=== PATIENT | male | born 1990 | race Caucasian/White ===

== ENCOUNTER 2017-03-17 18:24 | Emergency (ER) | payer MEDICAID ==
--- NOTE | 2017-03-17 19:37 | ED Physician Documentation ---
PD HPI SKIN - Stated complaint Stated Complaint: RASH ALL OVER - Chief complaint Chief Complaint: Wound - History obtained from History obtained from: Patient - History of Present Illness Timing - onset: How many days ago (2-3) Timing - duration: Days (2-3) Timing - details: Abrupt onset, Still present (more erupting daily) Location: [place] Quality / character: Painful, Swelling. No: Draining Associated symptoms: Myalgias. No: Fever, Joint pain Contributing factors: No: Exposed to medication, Exposed to food, Recent illness Similar symptoms before: Diagnosis (had staph infections in the past, not recent. Denies recent IVDU (last was few months ago).) Recently seen: Not recently seen Review of Systems Constitutional: reports: Myalgias. denies: Fever, Chills Neurologic: denies: Focal weakness, Numbness, Altered mental status, Headache PD PAST MEDICAL HISTORY - Past Medical History Past Medical History: No Endocrine/Autoimmune: None Other Past Medical History: hx IV drug abuse. denies using IV drugs at this time. - Past Surgical History Past Surgical History: No - Present Medications Home Medications: Ambulatory Orders Medication Instructions Recorded Confirmed Chlorhexidine Gluconate [Hibiclens] 10 ml TP DAILY #473 ml 03/17/17 Mupirocin 1 applic TP TID #15 oint...g. 03/17/17 Sulfamethox/Trimeth 800/160 1 each PO BID #14 tablet 03/17/17 [Bactrim Ds 800/160] - Allergies Allergies/Adverse Reactions: Allergies Allergy/AdvReac Type Severity Reaction Status Date / Time No Known Drug Allergies Allergy Verified 03/17/17 18:47 - Social History Does the pt smoke?: Yes Smoking Status: Current every day smoker Does the pt drink ETOH?: Yes Does the pt have substance abuse?: Yes - Immunizations Immunizations are current?: Yes PD ED PE NORMAL - Vitals Vital signs reviewed: Yes - General General: Alert and oriented X 3, No acute distress, Well developed/nourished - Neck Neck: Supple, no meningeal sign, No adenopathy - Cardiac Cardiac: RRR, No murmur - Respiratory Respiratory: Clear bilaterally - Derm Derm: Normal color, Other (multiple superficial erosions: back of neck, left forearm, hand, left abd - none seem abscessed. ) Results - Vitals Vitals: Oxygen O2 Source Room air PD MEDICAL DECISION MAKING - ED course Complexity details: considered differential (looks like staph multiple superficial erosions, not abscessed.), d/w patient Departure - Departure Disposition: 01 Home, Self Care Clinical Impression: Staphylococcal infection of skin Condition: Stable Record reviewed to determine appropriate education?: Yes Instructions: ED Staph Infec Abx Tx Only Prescriptions: Chlorhexidine Gluconate [Hibiclens] 10 ml TP DAILY #473 ml Mupirocin 1 applic TP TID #15 oint...g. Sulfamethox/Trimeth 800/160 [Bactrim Ds 800/160] 1 each PO BID #14 tablet Comments: Bactrim twice daily for a week. Use the mupirocin ointment on the worst lesions 2-3 times a day. Shower daily and use the chlorhexidine antiseptic from head to toe to help decrease the load of germs. Recheck if not improving over the next few days. Discharge Date/Time: 03/17/17 20:16
[2017-03-17] MEDS ORDERED: MUPIROCIN 2% OINT 1 GM TOP STA (19:49)
[2017-03-17] MEDS: SULFAMETH/TRIMETH DS 800/160 MG TABLET PO STA (20:04)
[2017-03-17] MEDS ORDERED: MUPIROCIN 2% OINT 1 GM ONE (20:06)
[2017-03-17] MEDS ORDERED: SULFAMETH/TRIMETH DS 800/160 MG TABLET PO ONE (20:06)
[2017-03-17 20:16] VITALS: BP 126/79
== END 2017-03-17 20:16 | disposition home or self-care (01) ==
LOC: ED 18:24
DX: L08.9 Local infection of the skin and subcutaneous tissue, unspecified (principal); B95.8 Unspecified staphylococcus as the cause of diseases classified elsewhere; F17.200 Nicotine dependence, unspecified, uncomplicated
CPT/HCPCS: 99283; A9270

== ENCOUNTER 2018-11-12 10:22 | Emergency (ER) | payer MEDICAID, OTHER ==
[2018-11-12 10:33] VITALS: BP 126/86
[2018-11-12] MEDS ORDERED: ONDANSETRON ODT 4 MG TABLET TL STA (11:11)
[2018-11-12] MEDS ORDERED: DOXYCYCLINE 100 MG TABLET PO STA (11:12)
[2018-11-12] MEDS ORDERED: ACETAMINOPHEN 325 MG TABLET PO STA (11:12)
--- NOTE | 2018-11-12 11:15 | ED Physician Documentation ---
PD HPI SKIN - Stated complaint Stated Complaint: FFJ - Chief complaint Chief Complaint: General - History obtained from History obtained from: Patient - History of Present Illness Timing - onset: Today (Here for medical clearance to be brought to retirement. His complaint is of some nausea that has had for a day or so. He states he has been drinking alcohol and using meth and heroin. He does have multiple small skin sores. He states he has had staph infections in the past. The deputy bring in the mid did not have a specific issue or concern but just that they need to clearance because of the polysubstance abuse.) Timing - details: Gradual onset, Still present, Other (he is arrested and bi consultant wants him checked for admission to retirement.) Location: [facility] Quality / character: Burning, Discolored (several red spots with pointed swelling on forearms c/w skin infections/ drug use.) Associated symptoms: No: Fever, Myalgias, N/V/D Contributing factors: Other (IV drug use) Similar symptoms before: No diagnosis (has small red bumps on forearms) Review of Systems Constitutional: denies: Fever, Chills, Myalgias Nose: denies: Rhinorrhea / runny nose, Congestion Throat: denies: Sore throat Cardiac: denies: Chest pain / pressure, Palpitations Respiratory: denies: Dyspnea, Cough GI: reports: Nausea. denies: Vomiting, Diarrhea Skin: reports: Abrasion (s), Other (forearms mainly with multiple discrete red). denies: Rash, Lesions Endocrine: denies: Weight loss Immunocompromised: denies: Immunocompromised PD PAST MEDICAL HISTORY - Past Medical History Endocrine/Autoimmune: None - Past Surgical History Past Surgical History: No - Present Medications Home Medications: Ambulatory Orders Medication Instructions Recorded Confirmed Chlorhexidine Gluconate [Hibiclens] 15 ml TP DAILY #236 ml 11/12/18 Doxycycline Hyclate 100 mg PO BID #20 capsule 11/12/18 Ondansetron Odt [Zofran] 4 mg TL Q6H PRN #10 tablet 11/12/18 - Allergies Allergies/Adverse Reactions: Allergies Allergy/AdvReac Type Severity Reaction Status Date / Time No Known Drug Allergies Allergy Verified 11/12/18 10:29 - Social History Does the pt smoke?: Yes Smoking Status: Current every day smoker Does the pt drink ETOH?: Yes Does the pt have substance abuse?: Yes Substance Use and Type: Meth, Heroin, Prescription Pills - Immunizations Immunizations are current?: Yes PD ED PE NORMAL - Vitals Vital signs reviewed: Yes - General General: Alert and oriented X 3, No acute distress, Well developed/nourished - HEENT HEENT: Ears normal, Pharynx benign. No: Moist mucous membranes - Neck Neck: Supple, no meningeal sign, No adenopathy - Cardiac Cardiac: RRR, No murmur - Respiratory Respiratory: Clear bilaterally - Abdomen Abdomen: Non tender. No: Normal bowel sounds (diminished) - Derm Derm: Normal color, Warm and dry, Other Results - Vitals Vitals: Vital Signs - 24 hr 11/12/18 10:27 Temperature 36.4 C L Heart Rate 102 H Respiratory 20 Rate Blood Pressure 126/86 H O2 Saturation 99 Oxygen O2 Source Room air Departure - Departure Disposition: 01 Home, Self Care Clinical Impression: Staph skin infection, Polysubstance abuse Condition: Stable Record reviewed to determine appropriate education?: Yes Instructions: ED Staph Infec Abx Tx Only, ED Drug Abuse General Prescriptions: Chlorhexidine Gluconate [Hibiclens] 15 ml TP DAILY #236 ml Doxycycline Hyclate 100 mg PO BID #20 capsule Ondansetron Odt [Zofran] 4 mg TL Q6H PRN #10 tablet PRN Reason: Nausea / Vomiting Comments: Use the chlorhexidine body wash for your showers daily for the next week or so. Doxycycline antibiotic orally twice daily for a week as well. This is for the several skin sores that look like there may be early infections. Use ondansetron if needed for nausea. We will hydrate well through the day today. Discharge Date/Time: 11/12/18 11:28
== END 2018-11-12 11:28 | disposition home or self-care (01) ==
LOC: ED 10:22
DX: Z02.89 Encounter for other administrative examinations (principal); L08.89 Other specified local infections of the skin and subcutaneous tissue; B95.8 Unspecified staphylococcus as the cause of diseases classified elsewhere; F19.10 Other psychoactive substance abuse, uncomplicated; F17.200 Nicotine dependence, unspecified, uncomplicated
CPT/HCPCS: 99283; 99284; A9270; Q0162

== ENCOUNTER 2018-11-17 14:58 | Emergency (ER) | payer MEDICAID ==
--- NOTE | 2018-11-17 16:00 | XRAY Report ---
Reason: poss rectal FB Procedure Date: 11/17/2018 Accession Number: [id number] / [id number] Procedure: XR - Abdomen 1 View X-Ray CPT Code: 53432 FULL RESULT: EXAM: ABDOMEN RADIOGRAPHY EXAM DATE: 11/17/2018 03:46 PM. CLINICAL HISTORY: Poss rectal FB. COMPARISON: None. TECHNIQUE: 1 view. FINDINGS: Bowel Gas Pattern: Within normal limits. No dilated loops. Other: No radiopaque foreign body is demonstrated. There is a large amount of stool throughout the colon. Small nodular soft tissue density focus projecting over the sacrum and the rectum region with encircling gas presumably represents gas surrounding formed stool within the bowel. IMPRESSION: 1. No radiopaque foreign bodies demonstrated. 2. Large amount of stool. RADIA
[2018-11-17 17:03] VITALS: BP 146/96
[2018-11-17] MEDS ORDERED: MAGNESIUM CITRATE 296 ML BOTTLE PO STA (17:07)
--- NOTE | 2018-11-17 17:10 | ED Physician Documentation ---
History of Present Illness - Stated complaint Stated Complaint: FOB IN RECTUM - Chief complaint Chief Complaint: General - History obtained from History obtained from: Patient - History of Present Illness Timing: Yesterday Pain level max: 0 Pain level now: 0 Improved by: nothing Worsened by: nothing - Additonal information Additional information: 28-year-old male presents to the emergency department after placing heroin in his rectum last night. States it did not come out today. Has not had a bowel movement today. He is not having any pain. No nausea or vomiting. No fevers. He wrapped the heroin and Saran wrap and then electrical tape. Review of Systems GI: denies: Abdominal Pain, Nausea, Vomiting, Diarrhea Skin: denies: Rash PD PAST MEDICAL HISTORY - Past Medical History Past Medical History: No Cardiovascular: None Respiratory: None Neuro: None Endocrine/Autoimmune: None GI: None : None HEENT: None Psych: None Musculoskeletal: None Derm: None - Past Surgical History Past Surgical History: No - Present Medications Home Medications: Ambulatory Orders Medication Instructions Recorded Confirmed Chlorhexidine Gluconate [Hibiclens] 15 ml TP DAILY #236 ml 11/12/18 Doxycycline Hyclate 100 mg PO BID #20 capsule 11/12/18 Ondansetron Odt [Zofran] 4 mg TL Q6H PRN #10 tablet 11/12/18 Polyethylene Glycol 3350 [Miralax] 17 gm PO DAILY PRN #1 bottle 11/17/18 - Allergies Allergies/Adverse Reactions: Allergies Allergy/AdvReac Type Severity Reaction Status Date / Time No Known Drug Allergies Allergy Verified 11/12/18 10:29 - Social History Does the pt smoke?: Yes Smoking Status: Current every day smoker Does the pt drink ETOH?: Yes Does the pt have substance abuse?: Yes Substance Use and Type: Marijuana, Meth, Heroin - Immunizations Immunizations are current?: Yes - POLST Patient has POLST: No PD ED PE NORMAL - Vitals Vital signs reviewed: Yes - General General: Alert and oriented X 3, No acute distress - Respiratory Respiratory: No respiratory distress, Clear bilaterally - Abdomen Abdomen: Soft, Non tender, Non distended - Derm Derm: Warm and dry - Neuro Neuro: Alert and oriented X 3 - Psych Psych: Normal mood, Normal affect Results - Vitals Vitals: Vital Signs - 24 hr 11/17/18 11/17/18 15:00 17:02 Temperature 37.2 C Heart Rate 117 H 124 H Respiratory 18 18 Rate Blood Pressure 130/97 H 146/96 H O2 Saturation 100 99 Oxygen O2 Source Room air - Rads (name of study) KUB Radiology: Prelim report reviewed, EMP read contemporaneously, See rad report (normal ) PD MEDICAL DECISION MAKING - ED course Complexity details: considered differential, d/w patient ED course: Patient with a likely rectal foreign body. Should pass with bowel movement. Declines rectal exam at this time. We will give a dose of magnesium citrate for home. Does have constipation on x-ray. Also placed on MiraLAX for home. Patient counseled regarding signs and symptoms for which I believe and urgent re-evaluation would be necessary. Patient with good understanding of and agreement to plan and is comfortable going home at this time This document was made in part using voice recognition software. While efforts are made to proofread this document, sound alike and grammatical errors may occur. Departure - Departure Disposition: Home, Self Care Clinical Impression: Rectal foreign body Qualifiers: Encounter type: initial encounter Qualified Code(s): T18.5XXA - Foreign body in anus and rectum, initial encounter Condition: Good Instructions: ED Foreign Body Rectal Removed Adlt Follow-Up: your,doctor as needed. [Other] Prescriptions: Polyethylene Glycol 3350 [Miralax] 17 gm PO DAILY PRN #1 bottle PRN Reason: Constipation Comments: Return if you worsen. This should pass without difficulty. Follow-up with your doctor in 3 days if it has not passed. Drink the magnesium citrate when you get home tonight.
== END 2018-11-17 17:14 | disposition home or self-care (01) ==
LOC: ED 14:58
DX: T18.5XXA Foreign body in anus and rectum, initial encounter (principal); X58.XXXA Exposure to other specified factors, initial encounter; K59.00 Constipation, unspecified; F17.200 Nicotine dependence, unspecified, uncomplicated
CPT/HCPCS: 74018; 99283; 99284; A9270

== ENCOUNTER 2019-06-01 14:41 | Emergency (ER) | payer MEDICAID ==
[2019-06-01 14:50] VITALS: BP 140/88
--- NOTE | 2019-06-01 14:58 | ED Physician Documentation ---
History of Present Illness - Stated complaint Stated Complaint: DRUG TEST - Chief complaint Chief Complaint: General - History obtained from History obtained from: Patient (He missed his appointment [facility] drug [facility] today for his drug test and requests a drug test. Also note that he has a years long nonpainful lesion on the right cheek that he would like a referral for.) Review of Systems Constitutional: denies: Fever, Chills Cardiac: reports: Reviewed and negative Respiratory: reports: Reviewed and negative PD PAST MEDICAL HISTORY - Past Medical History Cardiovascular: None Respiratory: None Neuro: None Endocrine/Autoimmune: None GI: None : None HEENT: None Psych: None Musculoskeletal: None Derm: None - Past Surgical History Past Surgical History: No - Present Medications Home Medications: Ambulatory Orders Medication Instructions Recorded Confirmed Chlorhexidine Gluconate [Hibiclens] 15 ml TP DAILY #236 ml 11/12/18 Doxycycline Hyclate 100 mg PO BID #20 capsule 11/12/18 Ondansetron Odt [Zofran] 4 mg TL Q6H PRN #10 tablet 11/12/18 Polyethylene Glycol 3350 [Miralax] 17 gm PO DAILY PRN #1 bottle 11/17/18 - Allergies Allergies/Adverse Reactions: Allergies Allergy/AdvReac Type Severity Reaction Status Date / Time No Known Drug Allergies Allergy Verified 06/01/19 14:50 - Social History Does the pt smoke?: Yes Smoking Status: Current every day smoker Does the pt drink ETOH?: Yes Does the pt have substance abuse?: Yes - Immunizations Immunizations are current?: Yes - POLST Patient has POLST: No PD ED PE NORMAL - Vitals Vital signs reviewed: Yes - General General: Alert and oriented X 3, No acute distress - HEENT HEENT: Other (There is a 2 cm soft lesion in the right cheek that is nontender. It could be a lipoma or sebaceous cyst.) - Neuro Neuro: Alert and oriented X 3, Normal speech Results - Vitals Vitals: Vital Signs - 24 hr 06/01/19 14:48 Temperature 36.5 C Heart Rate 83 Respiratory 18 Rate Blood Pressure 140/88 H O2 Saturation 100 Oxygen O2 Source Room air PD MEDICAL DECISION MAKING - ED course ED course: I discussed with him that for several reasons it was really not appropriate to order nonurgent and nonmedically indicated testing of the emergency department and he was given the name of a plastic surgeon for evaluation of the cheek lesion. Departure - Departure Disposition: 01 Home, Self Care Clinical Impression: Lesion of subcutaneous tissue Condition: Good Record reviewed to determine appropriate education?: Yes Comments: As discussed we really cannot perform testing such as drug testing without a medical indication. Hopefully you can straighten this out with drug court. As far as the facial lesion, I suspect this is either a dermoid cyst or lipoma. I would recommend following up with a plastic surgeon for excision. One option would be [facility] in [place], the phone number is [phone].
== END 2019-06-01 15:13 | disposition home or self-care (01) ==
LOC: ED 14:41
DX: M79.9 Soft tissue disorder, unspecified (principal); F17.200 Nicotine dependence, unspecified, uncomplicated
CPT/HCPCS: 99281; 99282

== ENCOUNTER 2019-06-08 13:36 | Outpatient (CLI) | payer OTHER, MEDICAID | END 2019-06-08 13:37 | disposition critical access hospital (66) | LOC: EMS 13:36 | PROVIDERS: ATTEND Surgery | DX: M79.651 Pain in right thigh (principal); S51.811A Laceration without foreign body of right forearm, initial encounter; V47.5XXA Car driver injured in collision with fixed or stationary object in traffic accident, initial encounter; Y92.410 Unspecified street and highway as the place of occurrence of the external cause | CPT/HCPCS: A0425; A0429 ==

== ENCOUNTER 2019-06-08 13:57 | Emergency (ER) | payer OTHER, MEDICAID ==
[2019-06-08 14:17] VITALS: BP 133/81
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
[2019-06-08] MEDS ORDERED: IBUPROFEN 600 MG TABLET PO STA (14:28)
--- NOTE | 2019-06-08 15:55 | XRAY Report ---
Reason: forearm abrasions with concern for glass FB Procedure Date: 06/08/2019 Accession Number: [id number] / [id number] Procedure: XR - Forearm RT CPT Code: Final Report FULL RESULT: EXAM: RIGHT FOREARM RADIOGRAPHY EXAM DATE: 06/08/2019 02:57 PM. CLINICAL HISTORY: Forearm abrasions with concern for glass FB. COMPARISON: None. TECHNIQUE: 2 views. FINDINGS: Bones: No fractures or bone lesions. Joints: Unremarkable. Soft Tissues: No unexpected radiopaque soft tissue foreign body. IMPRESSION: 1. No acute osseous abnormality. 2. No unexpected radiopaque soft tissue foreign body. RADIA
--- NOTE | 2019-06-08 15:55 | XRAY Report ---
Reason: hand lacs/abrasions with concern for glass FB Procedure Date: 06/08/2019 Accession Number: [id number] / [id number] Procedure: XR - Hand 3 View RT CPT Code: Final Report FULL RESULT: EXAM: RIGHT HAND RADIOGRAPHY EXAM DATE: 06/08/2019 02:57 PM. CLINICAL HISTORY: Hand lacs/abrasions with concern for glass FB. COMPARISON: None. TECHNIQUE: 3 views. FINDINGS: Bones: Normal. No fractures or bone lesions. Joints: Normal. No subluxations. Soft Tissues: Normal. No soft tissue swelling. IMPRESSION: No acute displaced fracture or malalignment. No radiopaque foreign body in the soft tissues. RADIA
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
== END 2019-06-08 16:21 | disposition home or self-care (01) ==
LOC: EDUNIT# → ED 13:57
DX: S70.11XA Contusion of right thigh, initial encounter (principal); S50.811A Abrasion of right forearm, initial encounter; S61.411A Laceration without foreign body of right hand, initial encounter; V89.2XXA Person injured in unspecified motor-vehicle accident, traffic, initial encounter; Y93.89 Activity, other specified; Y92.410 Unspecified street and highway as the place of occurrence of the external cause; F17.200 Nicotine dependence, unspecified, uncomplicated
CPT/HCPCS: 73090; 73130; 73552; 99283; 99284; A9270